=== PATIENT | male | born 1950 | race African-American/Black ===

== ENCOUNTER 2017-05-07 15:35 | Emergency (ER) | payer MEDICARE, MEDICAID ==
--- NOTE | 2017-05-07 16:01 | ER Document Report ---
ED General - General Stated Complaint: FLU LIKE SYMPTOMS Time Seen by Provider: 05/07/17 15:43 Mode of Arrival: Ambulatory Information source: Patient Notes: Patient presents emergency department with complaints of flu symptoms. Patient reports symptoms started 1 hour ago. He reports he was [facility] , [facility] [employer], when he felt achy shaky and dizzy. Denies shortness of breath. Denies chest pain. Denies fever vomiting diarrhea. Reports his throat is sore. Reports he has been eating and drinking all day normal. Patient did receive the flu vaccine this year. Patient is visiting from [facility]. He reports he drove here with a friend. Denies past medical history except for high blood pressure. - HPI Onset: Just prior to arrival Onset/Duration: Sudden Quality of pain: Achy Severity: Severe Pain Level: 5 Associated symptoms: Body/muscle aches, Sore throat Exacerbated by: Denies Relieved by: Denies Similar symptoms previously: No Recently seen / treated by doctor: No Past Medical History - General Information source: Patient - Social History Smoking Status: Unknown if Ever Smoked Cigarette use (# per day): No Frequency of alcohol use: None Drug Abuse: None Lives with: Family Family History: None Patient has suicidal ideation: No Patient has homicidal ideation: No - Past Medical History Cardiac Medical History: Reports: Hx Hypertension Surgical Hx: Negative Review of Systems - Review of Systems Notes: Review HPI for review of systems., All other systems negative Physical Exam - Vital signs Vitals: Temp Pulse Resp BP Pulse Ox 100.7 F H 112 H 16 161/82 H 97 05/07/17 15:41 05/07/17 15:41 05/07/17 15:41 05/07/17 15:41 05/07/17 15:41 - Notes Notes: PHYSICAL EXAMINATION: GENERAL: Well-appearing and in no acute distress nontoxic looking HEAD: Atraumatic, normocephalic. EYES: Pupils equal round and reactive to light, extraocular movements intact, sclera anicteric, conjunctiva are normal. ENT: nares patent, oropharynx clear without exudates. Moist mucous membranes. NECK: Normal range of motion, supple without lymphadenopathy LUNGS: CTAB and equal. No wheezes rales or rhonchi. HEART: Regular rate and rhythm without murmurs ABDOMEN: Soft, no tenderness. No guarding, no rebound EXTREMITIES: Normal range of motion, no pitting edema. No cyanosis. NEUROLOGICAL: Cranial nerves grossly intact. Normal sensory/motor exams. PSYCH: Normal mood, normal affect. SKIN: Warm, Dry, normal turgor, no rashes or lesions noted Course - Re-evaluation Re-evalutation: 05/07/17 17:06 Labs unremarkable flu test negative. EKG sinus tach. 05/07/17 18:41 temp 101.4 05/07/17 19:15 report given to Kaitlin Sandhu. - Vital Signs Vital signs: Temp Pulse Resp BP Pulse Ox 101.4 F H 107 H 16 129/71 H 98 05/07/17 18:38 05/07/17 18:38 05/07/17 18:38 05/07/17 18:38 05/07/17 18:38 - Laboratory Result Diagrams: 05/07/17 16:17 05/07/17 16:17 Laboratory results interpreted by me: 05/07/17 05/07/17 16:17 16:17 Seg Neutrophils % 82.6 H Lymphocytes % 11.0 L Glucose 143 H Discharge - Discharge Clinical Impression: Flu-like symptoms, Sore throat, Dizziness Condition: Stable Disposition: HOME, SELF-CARE Instructions: Acetaminophen, Dizziness ([facility]), Influenza ([facility]) Additional Instructions: *You have been evaluated for a dizziness, sore throat, flu like symptoms *Your flu test was negative, your strep test was negative *Warm salt water gargles and throat lozenges for comfort to ease your sore throat *Push fluids *Do not let anyone drink/eat after you *Good hand washing *Follow-up with a primary care provider within 3 days *Return to ED for worsening condition change, needs, concerns, unable to swallow Prescriptions: Oseltamivir Phosphate [Tamiflu 75 mg Capsule] 75 mg PO BID #10 capsule
[2017-05-07] MEDS ORDERED: ACETAMINOPHEN 325 MG TABLET PO ONE (16:31)
[2017-05-07 16:35] LABS: ABSOLUTE LYMPHOCYTES (AUTO) 1.1 10^3/uL (0.5-4.7); ABSOLUTE MONOCYTES (AUTO) 0.5 10^3/uL (0.1-1.4); ABSOLUTE NEUT (AUTO) 7.9 10^3/uL (1.7-8.2); BASOPHILS % (AUTO) 0.5 % (0-2); EOSINOPHILS % (AUTO) 0.3 % (0-6); HEMATOCRIT 41.3 % (37.9-51.0); HEMOGLOBIN 14.1 g/dL (13.5-17.0); MEAN CORPUSCULAR HEMOGLOBIN 31.3 pg (27.0-33.4); MEAN CORPUSCULAR HGB CONC 34.1 g/dL (32.0-36.0); MEAN CORPUSCULAR VOLUME 92 fl (80-97); MONOCYTES % (AUTO) 5.6 % (3-13); PLATELET COUNT 150 10^3/uL (150-450); RED CELL DISTRIBUTION WIDTH 13.5 % (11.5-14.0); SEGMENTED NEUTROPHILS % (AUTO) 82.6 % (42-78); TOTAL CELLS COUNTED % (AUTO) 100 %; WHITE BLOOD COUNT 9.5 10^3/uL (4.0-10.5)
[2017-05-07 16:49] LABS: ALANINE AMINOTRANSFERASE 36 U/L (21-72); ALBUMIN 4.4 g/dL (3.5-5.0); ALKALINE PHOSPHATASE 102 U/L (38-126); ANION GAP 11 (5-19); ASPARTATE AMINO TRANSFERASE 30 U/L (17-59); BILIRUBIN,DIRECT 0.1 mg/dL (0.0-0.4); BILIRUBIN,TOTAL 0.8 mg/dL (0.2-1.3); BLOOD UREA NITROGEN 17 mg/dL (7-20); CALCIUM 9.9 mg/dL (8.4-10.2); CARBON DIOXIDE 25 mmol/L (22-30); CHLORIDE 106 mmol/L (98-107); GLUCOSE 143 mg/dL (75-110); POTASSIUM 4.2 mmol/L (3.6-5.0); SODIUM 141.8 mmol/L (137-145); TOTAL PROTEIN 8.1 g/dL (6.3-8.2)
[2017-05-07 16:54] LABS: A TYPE INFLUENZA AG NEGATIVE (NEGATIVE); B INFLUENZA AG NEGATIVE (NEGATIVE)
--- NOTE | 2017-05-07 17:33 | EKG REPORT ---
SEVERITY:- ABNORMAL ECG - SINUS TACHYCARDIA LEFT ATRIAL ABNORMALITY : Confirmed by: Tiago Littlejohn MD 07-May-2017 17:32:09
[2017-05-07 18:19] LABS: APPEARANCE,URINE SLIGHTLY-CLOUDY; BILIRUBIN,URINE NEGATIVE (NEGATIVE); COLOR,URINE YELLOW; GLUCOSE, URINE NEGATIVE (NEGATIVE); KETONES,URINE NEGATIVE (NEGATIVE); LEUKOCYTE ESTERASE,URINE NEGATIVE (NEGATIVE); NITRITE,URINE NEGATIVE (NEGATIVE); PROTEIN,URINE NEGATIVE (NEGATIVE); URINE SPECIFIC GRAVITY 1.019; UROBILINOGEN,URINE NEGATIVE mg/dL (<2.0)
[2017-05-07] MEDS ORDERED: IBUPROFEN 800 MG TABLET PO ONE (18:41)
[2017-05-07 20:08] VITALS: BP 105/67
[2017-05-07] MEDS ORDERED: ONDANSETRON ODT 4 MG TAB (6 TAB/ER DISP) PO PRN (20:27)
== END 2017-05-07 20:30 | disposition home or self-care (01) ==
LOC: ER 15:35
DX: J02.9 Acute pharyngitis, unspecified (principal); R42 Dizziness and giddiness; M79.1 Myalgia; I10 Essential (primary) hypertension
CPT/HCPCS: 93005; 99284; 87070; 87880; 85025; 80053; 81001; 87804; 93010; A9270 ×3